=== PATIENT | female | born 1960 | race Native Hawaiian/Other Pacific Islander ===

== ENCOUNTER 2017-10-03 14:59 | Outpatient (CLI) | payer OTHER | END 2017-10-03 22:58 | disposition home or self-care (01) | LOC: RAD 14:59 | DX: M79.644 Pain in right finger(s) (principal) ==

== ENCOUNTER 2017-11-19 14:01 | Emergency (ER) | payer OTHER ==
[~2017-11-19] VITALS: Ht 152.4 cm; Wt 72.6 kg
== END 2017-11-19 15:19 | disposition home or self-care (01) ==
LOC: ED 14:01
DX: Z51.89 Encounter for other specified aftercare (principal); Z98.890 Other specified postprocedural states; W01.0XXA Fall on same level from slipping, tripping and stumbling without subsequent striking against object, initial encounter
CPT/HCPCS: 99282

== ENCOUNTER 2018-07-24 09:19 | Outpatient (CLI) | payer OTHER | END 2018-07-24 19:09 | disposition home or self-care (01) | LOC: MAMMO 09:19 | DX: N63.0 Unspecified lump in unspecified breast (principal); N63.13 Unspecified lump in the right breast, lower outer quadrant ==

== ENCOUNTER 2018-10-03 08:45 | Outpatient (CLI) | payer OTHER | END 2018-10-03 09:07 | disposition short-term general hospital (02) | LOC: AMB 08:45 | DX: R10.33 Periumbilical pain (principal); R10.815 Periumbilic abdominal tenderness; N64.4 Mastodynia; R07.89 Other chest pain; M79.602 Pain in left arm; A08.8 Other specified intestinal infections; R55 Syncope and collapse | CPT/HCPCS: A0425; A0427 ==

== ENCOUNTER 2020-06-24 09:44 | Outpatient (CLI) | payer OTHER | END 2020-06-24 20:03 | disposition home or self-care (01) | LOC: MRI 09:44 | PROVIDERS: ATTEND Nurse Practitioner | DX: R19.06 Epigastric swelling, mass or lump (principal) | CPT/HCPCS: 36415; 82565; 84520; A9576 ==

== ENCOUNTER 2022-02-06 08:44 | Outpatient (CLI) | payer OTHER | END 2022-02-06 19:08 | disposition home or self-care (01) | LOC: MAMMO 08:44 | PROVIDERS: ATTEND Registered Nurse | DX: Z12.31 Encounter for screening mammogram for malignant neoplasm of breast (principal) ==

== ENCOUNTER 2023-02-12 11:49 | Outpatient (CLI) | payer OTHER | END 2023-02-12 20:24 | disposition home or self-care (01) | LOC: MAMMO 11:49 | PROVIDERS: ATTEND Nurse Practitioner | DX: Z12.31 Encounter for screening mammogram for malignant neoplasm of breast (principal) ==